=== PATIENT | male | born 1965 | race African-American/Black ===

== ENCOUNTER 2018-07-10 16:08 | Emergency (ER) | payer MEDICARE, MEDICAID ==
[~2018-07-10] VITALS: Ht 182.9 cm; Wt 90.7 kg
[2018-07-10] MEDS ORDERED: Aspirin Baby 81mg ORAL ONE (16:30)
[2018-07-10 16:38] VITALS: BP 134/85
[2018-07-10] MEDS ORDERED: GABAPENTIN100 MG ORAL (16:38)
[2018-07-10] MEDS ORDERED: LATANOPROST2.5 ML BOTH EYES (16:38)
[2018-07-10] MEDS ORDERED: TRUSOPT10 ML RIGHT EYE (16:38)
[2018-07-10] MEDS ORDERED: [UNRECOGNIZED DRUG - OTHER] BOTH EYES (16:38)
[2018-07-10] MEDS ORDERED: SIMETHICONE80 MG ORAL (16:38)
[2018-07-10] MEDS ORDERED: AMLODIPINE BESY10 MG ORAL (16:38)
[2018-07-10] MEDS ORDERED: NORCO 5-325 TA1 EACH ORAL (16:38)
[2018-07-10] MEDS ORDERED: HUMULIN R100 UNIT/1 SUBQ (16:38)
[2018-07-10] MEDS ORDERED: ACETAMINOPHEN325 M1 ORAL ×2 (16:38→17:32)
[2018-07-10] MEDS ORDERED: SENNA-S LAXATI1 EACH PO (16:38)
[2018-07-10] MEDS ORDERED: ATORVASTATIN CA80 MG ORAL (16:38)
[2018-07-10] MEDS ORDERED: FERROUS SULFAT325 MG ORAL (16:38)
[2018-07-10] MEDS ORDERED: BRIMONIDINE TART5 ML BOTH EYES (16:38)
[2018-07-10] MEDS ORDERED: LISINOPRIL20 MG ORAL (16:38)
[2018-07-10] MEDS ORDERED: PREDNISOLONE ACE5 M1 OP ×2 (16:38→18:18)
[2018-07-10] MEDS ORDERED: TIMOLOL MALEATE5 M1 OP (16:38)
--- NOTE | 2018-07-10 17:00 | Diagnostic Imaging Report ---
Indication: Cough Technique: One view of the chest Comparison: none Findings: The heart is mildly enlarged. Lungs and pleural spaces are clear. Impression: Mild cardiomegaly No acute process
[2018-07-10 17:02] LABS: BASOPHILS % (AUTO) 1.1 % (0.0-2.0); HEMATOCRIT 41.4 % (42.0-52.0); HEMOGLOBIN 13.7 G/DL (14.2-18.0); LYMPHOCYTES % (AUTO) 23.5 % (20.0-45.0); MEAN CORPUSCULAR VOLUME 80 FL (80-99); MONOCYTES % (AUTO) 6.3 % (1.0-10.0); NEUTROPHILS % (AUTO) 67.1 % (45.0-75.0); PLATELET COUNT 215 K/UL (150-450); RED BLOOD COUNT 5.18 M/UL (4.70-6.10); WHITE BLOOD COUNT 6.8 K/UL (4.8-10.8)
[2018-07-10 17:07] LABS: ANION GAP 6 mmol/L (5-15); BLOOD UREA NITROGEN 11 mg/dL (7-18); CALCIUM 9.1 MG/DL (8.5-10.1); CARBON DIOXIDE 31 MMOL/L (21-32); CHLORIDE 104 MMOL/L (98-107); SODIUM 140 MMOL/L (136-145)
[2018-07-10 17:20] LABS: ALANINE AMINOTRANSFERASE 33 U/L (12-78); ALBUMIN 3.3 G/DL (3.4-5.0); ALBUMIN/GLOBULIN RATIO 0.6 (1.0-2.7); ALKALINE PHOSPHATASE 114 U/L (46-116); ASPARTATE AMINO TRANSFERASE 20 U/L (15-37); BILIRUBIN,DIRECT 0.2 MG/DL (0.0-0.3); BILIRUBIN,TOTAL 5.3 MG/DL (0.2-1.0); CREATINE KINASE 215 U/L (26-308)
[2018-07-10] MEDS ORDERED: DULCOLAX10 MG RC (17:58)
[2018-07-10] MEDS ORDERED: LANTUS SOL100 UNIT/1 SUBQ (17:58)
[2018-07-10] MEDS ORDERED: CEPACOL SORETH1 EACH ORAL (17:58)
[2018-07-10] MEDS ORDERED: ATROPINE SULFAT15 ML OP (17:58)
[2018-07-10] MEDS ORDERED: LISINOPRIL40 MG ORAL (17:58)
[2018-07-10] MEDS ORDERED: HIBICLENS118 ML PO (17:58)
--- NOTE | 2018-07-10 18:11 | Emergency Room Report ---
History of Present Illness General Chief Complaint: General Complaint Source: Patient, EMS Present Illness HPI Patient presents emergency department today complaining of chest pain. Patient is deaf but is able to read lips. Apparently patient was in a prison develop acute onset of chest pain. Patient unfortunately is unable to provide me with much history. He denies chest pain this time. No other complaints are noted. Symptoms noted to be moderate. Unknown the extent of the chest pain or the time of onset.No other modifying factors. No other associated signs and symptoms. No other complaints were noted. Allergies: Coded Allergies: No Known Allergies (Unverified , 07/10/18) Patient History Past Medical History: DM, HTN Past Surgical History: kareem Social History: Denies: smoking, alcohol use, drug use Reviewed Nursing Documentation: PMH: Agreed; PSxH: Agreed Nursing Documentation-PMH Hx Hypertension: Yes Hx Diabetes: Yes Review of Systems All Other Systems: negative except mentioned in HPI Physical Exam Vital Signs Date Time Temp Pulse Resp B/P (MAP) Pulse Ox O2 Delivery O2 Flow Rate FiO2 07/10/18 16:05 97.5 58 16 190/70 98 Nasal Cannula 2.0 Sp02 EP Interpretation: reviewed, normal General Appearance: alert, other - Appears weak Head: atraumatic Eyes: bilateral eye normal inspection ENT: normal ENT inspection, hearing grossly normal, normal voice Neck: normal inspection, full range of motion, supple, no bony tend Respiratory: normal inspection, lungs clear, normal breath sounds, no respiratory distress, no retraction, no wheezing Cardiovascular #1: regular rate, rhythm, no edema Gastrointestinal: normal inspection, normal bowel sounds, non tender, soft, no guarding, no hernia Genitourinary: no CVA tenderness Musculoskeletal: normal inspection, back normal, normal range of motion Neurologic: normal inspection, alert, responsive Psychiatric: depressed affect Skin: normal inspection, normal color, no rash Medical Decision Making Diagnostic Impression: Primary Impression: ACS (acute coronary syndrome) Additional Impression: Total bilirubin, elevated ER Course Patient presents emergency department today complaining of chest discomfort. Differential diagnoses include acute coronary syndrome, atypical chest pain, gastritis just to name a few.Given the severity of the patient's presentation I felt this is a highly complex patient. This patient required extensive workup. Patient's laboratory workup was not impressive except for elevated bilirubin. We will obtain a abdominal ultrasound. Case was discussed with [facility]. Patient will be transferred further evaluation. [phone]. Dr. Santiago. Labs Test 07/10/18 16:35 White Blood Count 6.8 K/UL (4.8-10.8) Red Blood Count 5.18 M/UL (4.70-6.10) Hemoglobin 13.7 G/DL (14.2-18.0) Hematocrit 41.4 % (42.0-52.0) Mean Corpuscular Volume 80 FL (80-99) Mean Corpuscular Hemoglobin 26.4 PG (27.0-31.0) Mean Corpuscular Hemoglobin Concent 33.0 G/DL (32.0-36.0) Red Cell Distribution Width 11.0 % (11.6-14.8) Platelet Count 215 K/UL (150-450) Mean Platelet Volume 7.7 FL (6.5-10.1) Neutrophils (%) (Auto) 67.1 % (45.0-75.0) Lymphocytes (%) (Auto) 23.5 % (20.0-45.0) Monocytes (%) (Auto) 6.3 % (1.0-10.0) Eosinophils (%) (Auto) 2.0 % (0.0-3.0) Basophils (%) (Auto) 1.1 % (0.0-2.0) Sodium Level 140 MMOL/L (136-145) Potassium Level 4.0 MMOL/L (3.5-5.1) Chloride Level 104 MMOL/L (98-107) Carbon Dioxide Level 31 MMOL/L (21-32) Anion Gap 6 mmol/L (5-15) Blood Urea Nitrogen 11 mg/dL (7-18) Creatinine 1.0 MG/DL (0.55-1.30) Estimat Glomerular Filtration Rate > 60 mL/min (>60) Glucose Level 205 MG/DL (74-106) Calcium Level 9.1 MG/DL (8.5-10.1) Total Bilirubin 5.3 MG/DL (0.2-1.0) Direct Bilirubin 0.2 MG/DL (0.0-0.3) Aspartate Amino Transf (AST/SGOT) 20 U/L (15-37) Alanine Aminotransferase (ALT/SGPT) 33 U/L (12-78) Alkaline Phosphatase 114 U/L (46-116) Total Creatine Kinase 215 U/L (26-308) Creatine Kinase MB 1.0 NG/ML (0.0-3.6) Creatine Kinase MB Relative Index 0.4 Troponin I 0.008 ng/mL (0.000-0.056) Pro-B-Type Natriuretic Peptide 53 pg/mL (0-125) Total Protein 8.5 G/DL (6.4-8.2) Albumin 3.3 G/DL (3.4-5.0) Globulin 5.2 g/dL Albumin/Globulin Ratio 0.6 (1.0-2.7) EKG Diagnostic Results Rate: normal Rhythm: NSR ST Segments: no acute changes Rhythm Strip Diag. Results EP Interpretation: yes Rate: 63 Rhythm: NSR, no PVC's, no ectopy Chest X-Ray Diagnostic Results Chest X-Ray Diagnostic Results : Chest X-Ray Ordered: Yes # of Views/Limited/Complete: 1 View Indication: Chest Pain EP Interpretation: No Impression: No acute disease Last Vital Signs Date Time Temp Pulse Resp B/P (MAP) Pulse Ox O2 Delivery O2 Flow Rate FiO2 07/10/18 16:42 82 20 Room Air 07/10/18 16:38 97.5 134/85 96 07/10/18 16:05 2.0 Status: improved Disposition: XFER SHT-TRM HOSP Condition: Serious Referrals: [facility] (PCP) Daljit Clayton MD Jul 10, 2018 18:11
[2018-07-10] MEDS ORDERED: SENNOSIDES8.6 MG ORAL (18:18)
[2018-07-10] MEDS ORDERED: ROBITUSSIN COU118 M1 PO (18:18)
[2018-07-10] MEDS ORDERED: MINERAL OIL EN133 ML RC (18:18)
[2018-07-10] MEDS ORDERED: SORBITOL 70%30 ML PO (18:18)
[2018-07-10] MEDS ORDERED: ALUM-MAG HYDRO360 ML PO (18:18)
[2018-07-10 18:28] VITALS: BP 121/74
[2018-07-10 21:36] VITALS: BP 125/81
--- NOTE | 2018-07-11 09:06 | Diagnostic Imaging Report ---
Indication: Abdominal pain. Technique: Isabel-scale and duplex images of the upper abdomen were obtained. Doppler interrogation of the hepatic vessels and pancreatic vessels Comparison: none Findings: Gallbladder is surgically absent. Common bile duct measures 2 mm in diameter. No intrahepatic biliary ductal dilatation. Liver demonstrates normal echogenicity, no focal abnormality. Portal vein and hepatic veins are patent. Pancreas is obscured by bowel gas. Spleen is unremarkable. Left kidney measures 11.8 cm in length. Right kidney measures 11.8 cm length. Both kidneys demonstrate normal echogenicity. There is no hydronephrosis. Small echogenic focus with shadowing is seen in the left renal sinus, could indicate a small nonobstructive calculus . Abdominal aorta is partially obscured by bowel gas, visualized portions are non-aneurysmal . Impression: Surgically absent gallbladder Negative for dilated bile ducts Possible nonobstructive left renal calculus Note nonvisualization of the pancreas and portions of the abdominal aorta This agrees with the preliminary interpretation provided overnight by [facility].
== END 2018-07-10 22:00 | disposition short-term general hospital (02) ==
LOC: EDBD 16:08 → EMR 16:57
DX: I24.9 Acute ischemic heart disease, unspecified (principal); E80.6 Other disorders of bilirubin metabolism; I10 Essential (primary) hypertension; E11.9 Type 2 diabetes mellitus without complications
CPT/HCPCS: 36415; 71045; 76700; 80053; 82248; 82550; 82553; 83880; 84484; 85025; 87081; 93005; 99285